=== PATIENT | female | born 1985 | race Caucasian/White ===

== ENCOUNTER 2025-03-13 15:53 | Outpatient (CLI) | payer OTHER, SELFPAY | END 2025-03-13 15:54 | disposition home or self-care (01) | PROVIDERS: PCP Family Medicine; Visit Provider Family Medicine | DX: E78.5 Hyperlipidemia, unspecified (principal); R53.83 Other fatigue; R73.03 Prediabetes | CPT/HCPCS: 80053; 80061; 82607; 82728; 83540; 83550; 84443 ==